=== PATIENT | male | born 1995 | race African-American/Black ===

== ENCOUNTER 2018-11-16 20:05 | Emergency (ER) | payer SELFPAY ==
[~2018-11-16] VITALS: Ht 180.3 cm; Wt 105.0 kg
[2018-11-16 20:37] LABS: BASOPHILS % (AUTO) 0.4 % (0.0-2.0); EOSINOPHILS % (AUTO) 1.6 % (1.0-6.0); HEMATOCRIT 40.8 % (41-53); HEMOGLOBIN 13.5 g/dL (13.5-17.5); LYMPHOCYTES # (AUTO) 2.3 K/uL (1.0-4.8); LYMPHOCYTES % (AUTO) 24.6 % (22.0-44.0); MEAN CORPUSCULAR HEMOGLOBIN 28.4 pg (26.0-34.0); MEAN CORPUSCULAR HGB CONC 33.1 G/dL (31.0-37.0); MEAN CORPUSCULAR VOLUME 86 fL (80-100); MONOCYTES % (AUTO) 10.9 % (2.0-9.0); NEUTROPHILS # (AUTO) 5.7 K/uL (1.8-7.7); NEUTROPHILS % (AUTO) 62.5 % (40.0-70.0); PLATELET COUNT (AUTO) 237 K/uL (150-450); RED BLOOD CELL COUNT(AUTO) 4.76 MIL/uL (4.50-5.90); RED CELL DISTRIBUTION WIDTH 14.5 % (11.5-14.5)
[2018-11-16] MEDS: KETOROLAC TROMETHAMINE 30 MG/ML VIAL IVP ONE (20:45)
[2018-11-16] MEDS: ONDANSETRON HCL 4 MG/2 ML VIAL IVP ONE (20:45)
[2018-11-16 20:46] LABS: ANION GAP 7 mmol/L (8-16); CALCIUM, TOTAL 8.9 mg/dL (8.8-10.5); CARBON DIOXIDE 29 mmol/L (22-29); CHLORIDE 105 mmol/L (98-107); CREATININE 1.08 mg/dL (0.60-1.30); GLOMERULAR FILTR. RATE CALC > 60 mL/min (>60); GLUCOSE,RANDOM 81 mg/dL (70-110); POTASSIUM 3.9 mmol/L (3.5-5.1); SODIUM SERUM 141 mmol/L (136-145); UREA NITROGEN, BLOOD 19 mg/dL (7-18)
[2018-11-16 20:52] LABS: ALANINE AMINOTRANSFERASE 54 U/L (12-78); ALBUMIN 3.7 g/dL (3.4-5.0); ALKALINE PHOSPHATASE 105 U/L (46-116); ASPARTATE AMINOTRANSFERASE 33 U/L (15-37); BILIRUBIN,TOTAL 0.3 mg/dL (0.1-1.0); TOTAL PROTEIN, SERUM 7.3 g/dL (6.4-8.2)
[2018-11-16 22:50] VITALS: BP 120/66
== END 2018-11-16 23:15 | disposition home or self-care (01) ==
LOC: EMS 20:06
DX: S00.03XA Contusion of scalp, initial encounter (principal); S10.93XA Contusion of unspecified part of neck, initial encounter; S00.83XA Contusion of other part of head, initial encounter; S30.1XXA Contusion of abdominal wall, initial encounter; S70.02XA Contusion of left hip, initial encounter; S40.021A Contusion of right upper arm, initial encounter; I10 Essential (primary) hypertension; Z91.018 Allergy to other foods; V47.5XXA Car driver injured in collision with fixed or stationary object in traffic accident, initial encounter; Y93.89 Activity, other specified; Y92.89 Other specified places as the place of occurrence of the external cause; Y99.8 Other external cause status
CPT/HCPCS: 36415; 70450; 71045; 72125; 73060; 73503; 74177; 80053; 85025; 96374; 96375; 99284; G0480; J1885; J2405; 29240

== ENCOUNTER 2021-06-19 10:11 | Emergency (ER) | payer MEDICAID ==
[~2021-06-19] VITALS: Ht 180.3 cm; Wt 120.0 kg
[2021-06-19] MEDS ORDERED: IBUPROFEN 400 MG TABLET PO ONE (11:30)
[2021-06-19] MEDS ORDERED: LIDOCAINE 5% TRANSDERMAL PATCH TD ONE (13:00)
[2021-06-19 13:49] VITALS: BP 111/68
== END 2021-06-19 13:55 | disposition home or self-care (01) ==
LOC: EMS 10:16
DX: M75.32 Calcific tendinitis of left shoulder (principal); I10 Essential (primary) hypertension; I25.2 Old myocardial infarction; Z91.018 Allergy to other foods
CPT/HCPCS: 99283

== ENCOUNTER 2021-10-09 23:37 | Emergency (ER) | payer MEDICAID ==
[~2021-10-09] VITALS: Ht 180.3 cm; Wt 122.7 kg
[2021-10-10] MEDS ORDERED: LIDOCAINE 1% 10 ML VIAL IM ONE (01:15)
[2021-10-10 01:59] VITALS: BP 121/68
== END 2021-10-10 02:09 | disposition home or self-care (01) ==
LOC: EMS 23:38
DX: L02.214 Cutaneous abscess of groin (principal); L03.314 Cellulitis of groin; I10 Essential (primary) hypertension; I25.2 Old myocardial infarction; Z91.018 Allergy to other foods
CPT/HCPCS: 10060; 99283; J3490